=== PATIENT | female | born 1935 | race Caucasian/White ===

== ENCOUNTER 2023-11-14 11:38 | Inpatient (IN) ==
[2023-11-14] MEDS ORDERED: IOPAMIDOL 100 ML BOTTLE IV ONE (11:39)
[2023-11-14] MEDS ORDERED: 0.9 % SODIUM CHLORIDE 1,000 ML IV SCH (12:00)
[2023-11-14 12:21] LABS: POC Calcium, Ionized 1.1 (1.16-1.32); POC Creatinine 0.6 (0.6-1.2)
[2023-11-14] MEDS ORDERED: METOPROLOL TARTRATE 5 MG/5 ML VIAL IV ONE (12:46)
[2023-11-14 13:10] LABS: Basophils # (Auto) 0.05 K/mcL (0.00-0.30); Basophils % (Auto) 0.4 % (0.0-2.0); Eosinophils # (Auto) 0.01 K/mcL (0.00-0.70); Eosinophils % (Auto) 0.1 % (0.0-7.0); Hematocrit 44.2 % (34.1-44.9); Hemoglobin 14.9 g/dL (11.2-15.7); Mean Cell Volume 81.5 fL (80.0-100.0); Mean Corpuscular HGB Conc 33.7 g/dL (31.0-36.0); Mean Platelet Volume 9.5 fL (8.8-12.5); Monocytes # (Auto) 1.32 K/mcL (0.10-0.90); Monocytes % (Auto) 11.5 % (1.0-12.0); Neutrophils % (Auto) 79.5 % (38.0-78.0); Platelet Count 212 K/mcL (140-440); RBC 5.42 M/mcL (3.59-5.38); Red Cell Distribution Width 13.6 % (11.5-14.5); WBC 11.5 K/mcL (4.5-11.0)
[2023-11-14] MEDS ORDERED: 0.9 % SODIUM CHLORIDE 1,000 ML IV ONE (13:44)
[2023-11-14 13:45] LABS: ALT/SGPT 17 U/L (<40); AST/SGOT 28 U/L (<32); Albumin/Globulin Ratio 1.5 (1.0-2.3); Alkaline Phosphatase 105 U/L (39-117); Bilirubin,Total 0.9 mg/dL (0.1-1.0); Blood Urea Nitrogen 12 mg/dL (8-23); Calcium 10.2 mg/dL (8.6-10.4); Carbon Dioxide 23 mmol/L (22-30); Chloride 87 mmol/L (96-108); Globulin 3.4 gm/dL (2.2-3.7); Glomerular Filtration Rate 77; Glucose 112 mg/dL (70-105)
[2023-11-14] MEDS ORDERED: DILTIAZEM 25 MG/5 ML VIAL IV ONE ×2 (14:31→15:44)
[2023-11-14] MEDS ORDERED: AZITHROMYCIN 500 MG in DEXTROSE 5% IN WATER 250 ML IV ONE (14:53)
[2023-11-14] MEDS ORDERED: cefTRIAXone 1 GM VIAL IV ONE (14:53)
[2023-11-14] MEDS ORDERED: METOPROLOL TARTRATE 50 MG TABLET PO ONE (14:54)
[2023-11-14 15:03] LABS: Appearance,Urine HAZY (Clear); Bilirubin,Urine Negative (Negative); Color,Urine YELLOW; Culture Indicated,Urine No; Glucose,Urine (UA) Negative (Negative); Ketones,Urine Negative (Negative); Leukocyte Esterase,Urine Negative /uL (Negative); Mucus,Urine FEW /hpf; Nitrate,Urine Negative (Negative); Protein,Urine 100 mg/dL (Negative); Specific Gravity,Urine 1.019 (1.000-1.035); Urine Blood 0.03 mg/dL (Negative); Urine RBC 2 /hpf (0-3); Urine Squamous Epithelial Cell 0 /hpf (0-4); Urine WBC 2 /hpf (0-4); Urobilinogen,Urine Negative
[2023-11-14 15:08] LABS: Amphetamine Screen,Urine None detected; Barbiturate Screen,Urine None detected; Benzodiazepines Screen,Urine None detected; Cannabinoid Screen,Urine None detected; Cocaine Screen,Urine None detected; Opiate Screen,Urine None detected; Oxycodone, Urine Screen None detected; Phencyclidine Screen,Urine None detected
[2023-11-14] MEDS ORDERED: ONDANSETRON 4 MG/2 ML VIAL IV PRN (16:02)
[2023-11-14] MEDS ORDERED: MAGNESIUM HYDROXIDE 30 ML ORAL.SUSP PO PRN (16:02)
[2023-11-14] MEDS ORDERED: SENNOSIDES 1 TABLET PO PRN (16:02)
[2023-11-14] MEDS ORDERED: IPRATROPIUM/ALBUTEROL 3 ML AMPUL.NEB NEB PRN (16:02)
[2023-11-14] MEDS ORDERED: AZITHROMYCIN 500 MG in DEXTROSE 5% IN WATER 250 ML IV SCH (16:15)
[2023-11-14] MEDS ORDERED: cefTRIAXone 1 GM VIAL IV SCH (16:15)
[2023-11-14] MEDS ORDERED: MAGNESIUM SULFATE 1 GM/100 ML BAG IV SCH (16:33)
[2023-11-14] MEDS ORDERED: RIVAROXABAN 20 MG TABLET PO SCH (17:30)
[2023-11-14 17:43] LABS: Thyroid Stimulating Hormone 1.38 uIU/mL (0.27-5.01)
[2023-11-14] MEDS: LACTATED RINGERS 1,000 ML IV SCH (17:54)
[2023-11-14] MEDS ORDERED: POTASSIUM CHLORIDE 20 MEQ/10 ML VIAL IV ONE ×3 (18:47→23:10)
[2023-11-14] MEDS: POTASSIUM CHLORIDE 20 MEQ in DEXTROSE 5% IN WATER 250 ML IV SCH ×3 (19:01→23:33)
[2023-11-14] MEDS: QUEtiapine 25 MG TABLET PO SCH (19:10)
[2023-11-14] MEDS ORDERED: MAGNESIUM SULFATE 4 GM/100 ML BAG IV SCH (19:35)
[2023-11-14] MEDS ORDERED: MAGNESIUM SULFATE 4 GM/100 ML BAG IV ONE (19:49)
[2023-11-14] MEDS: 0.9 % SODIUM CHLORIDE 10 ML SYRINGE IV SCH (21:21)
[2023-11-15] MEDS: DILTIAZEM 25 MG/5 ML VIAL IV PRN ×4 (00:14→17:27)
[2023-11-15] MEDS: ACETAMINOPHEN 650 MG SUPP.RECT PR PRN ×2 (00:24→10:02)
[2023-11-15] MEDS: QUEtiapine 25 MG TABLET PO PRN ×3 (03:11→15:56)
[2023-11-15] MEDS: 0.9 % SODIUM CHLORIDE 10 ML SYRINGE IV SCH ×3 (04:49→20:35)
[2023-11-15 06:19] LABS: Basophils # (Auto) 0.03 K/mcL (0.00-0.30); Basophils % (Auto) 0.2 % (0.0-2.0); Eosinophils # (Auto) 0.03 K/mcL (0.00-0.70); Eosinophils % (Auto) 0.2 % (0.0-7.0); Hematocrit 35.8 % (34.1-44.9); Hemoglobin 12.4 g/dL (11.2-15.7); Lymphocytes # (Auto) 0.83 K/mcL (1.50-4.80); Lymphocytes % (Auto) 6.5 % (15.5-49.0); Mean Cell Volume 80.4 fL (80.0-100.0); Mean Corpuscular HGB Conc 34.6 g/dL (31.0-36.0); Monocytes # (Auto) 1.86 K/mcL (0.10-0.90); Monocytes % (Auto) 14.6 % (1.0-12.0); Neutrophils % (Auto) 77.6 % (38.0-78.0); Platelet Count 164 K/mcL (140-440); RBC 4.45 M/mcL (3.59-5.38); Red Cell Distribution Width 13.3 % (11.5-14.5); WBC 12.8 K/mcL (4.5-11.0)
[2023-11-15 06:54] LABS: Blood Urea Nitrogen 8 mg/dL (8-23); Calcium 9.1 mg/dL (8.6-10.4); Carbon Dioxide 26 mmol/L (22-30); Chloride 87 mmol/L (96-108); Glomerular Filtration Rate 81; Glucose 101 mg/dL (70-105)
[2023-11-15] MEDS: cefTRIAXone 1 GM VIAL IV SCH (08:39)
[2023-11-15] MEDS ORDERED: METOPROLOL SUCCINATE 50 MG TAB.XL.24H PO SCH (09:00)
[2023-11-15] MEDS: AZITHROMYCIN 500 MG in DEXTROSE 5% IN WATER 250 ML IV SCH (09:02)
[2023-11-15] MEDS: QUEtiapine 25 MG TABLET PO SCH ×2 (09:23→23:17)
[2023-11-15] MEDS: LACTATED RINGERS 1,000 ML IV SCH ×2 (11:58→12:14)
[2023-11-15] MEDS: POTASSIUM CHLORIDE 40 MEQ in DEXTROSE 5% IN WATER 500 ML IV SCH ×2 (11:59→16:58)
[2023-11-15] MEDS: METOPROLOL TARTRATE 50 MG TABLET PO SCH ×2 (12:20→20:35)
[2023-11-15] MEDS: RIVAROXABAN 20 MG TABLET PO SCH (18:12)
[2023-11-16] MEDS: ACETAMINOPHEN 650 MG SUPP.RECT PR PRN (01:19)
[2023-11-16] MEDS: LACTATED RINGERS 1,000 ML IV SCH ×3 (05:24→23:58)
[2023-11-16] MEDS: 0.9 % SODIUM CHLORIDE 10 ML SYRINGE IV SCH ×3 (05:48→20:41)
[2023-11-16 06:31] LABS: Basophils # (Auto) 0.03 K/mcL (0.00-0.30); Basophils % (Auto) 0.3 % (0.0-2.0); Eosinophils # (Auto) 0.11 K/mcL (0.00-0.70); Eosinophils % (Auto) 1.1 % (0.0-7.0); Hematocrit 35.4 % (34.1-44.9); Hemoglobin 12.4 g/dL (11.2-15.7); Lymphocytes # (Auto) 1.42 K/mcL (1.50-4.80); Lymphocytes % (Auto) 13.7 % (15.5-49.0); Mean Cell Volume 81.8 fL (80.0-100.0); Mean Platelet Volume 9.7 fL (8.8-12.5); Monocytes # (Auto) 1.54 K/mcL (0.10-0.90); Monocytes % (Auto) 14.8 % (1.0-12.0); Neutrophils % (Auto) 69.1 % (38.0-78.0); Platelet Count 175 K/mcL (140-440); RBC 4.33 M/mcL (3.59-5.38); Red Cell Distribution Width 13.5 % (11.5-14.5); WBC 10.4 K/mcL (4.5-11.0)
[2023-11-16 07:25] LABS: Thyroid Stimulating Hormone 2.52 uIU/mL (0.27-5.01)
[2023-11-16 07:36] LABS: Blood Urea Nitrogen 7 mg/dL (8-23); Calcium 9.4 mg/dL (8.6-10.4); Carbon Dioxide 24 mmol/L (22-30); Chloride 95 mmol/L (96-108); Glomerular Filtration Rate 86; Glucose 89 mg/dL (70-105)
[2023-11-16] MEDS ORDERED: LACTATED RINGERS 1,000 ML IV SCH (09:30)
[2023-11-16] MEDS: ACETAMINOPHEN 325 MG TABLET PO PRN ×3 (09:36→21:00)
[2023-11-16] MEDS: METOPROLOL TARTRATE 50 MG TABLET PO SCH (09:40)
[2023-11-16] MEDS: cefTRIAXone 1 GM VIAL IV SCH (09:41)
[2023-11-16] MEDS: POTASSIUM CHLORIDE 20 MEQ TABLET PO SCH (09:41)
[2023-11-16] MEDS: QUEtiapine 25 MG TABLET PO SCH ×2 (09:45→09:56)
[2023-11-16] MEDS: AZITHROMYCIN 500 MG in DEXTROSE 5% IN WATER 250 ML IV SCH (10:39)
[2023-11-16] MEDS: METOPROLOL SUCCINATE 50 MG TAB.XL.24H PO SCH (17:08)
[2023-11-16] MEDS: RIVAROXABAN 20 MG TABLET PO SCH (17:09)
[2023-11-16] MEDS: DILTIAZEM 25 MG/5 ML VIAL IV PRN (17:12)
[2023-11-17] MEDS: ACETAMINOPHEN 325 MG TABLET PO PRN ×3 (04:39→21:28)
[2023-11-17] MEDS: 0.9 % SODIUM CHLORIDE 10 ML SYRINGE IV SCH ×4 (04:39→21:22)
[2023-11-17 05:57] LABS: Basophils # (Auto) 0.08 K/mcL (0.00-0.30); Eosinophils # (Auto) 0.12 K/mcL (0.00-0.70); Eosinophils % (Auto) 1.5 % (0.0-7.0); Hematocrit 36.5 % (34.1-44.9); Hemoglobin 12.4 g/dL (11.2-15.7); Lymphocytes # (Auto) 1.18 K/mcL (1.50-4.80); Lymphocytes % (Auto) 14.4 % (15.5-49.0); Mean Cell Volume 83.7 fL (80.0-100.0); Mean Platelet Volume 9.4 fL (8.8-12.5); Monocytes # (Auto) 1.44 K/mcL (0.10-0.90); Monocytes % (Auto) 17.6 % (1.0-12.0); Neutrophils % (Auto) 63.5 % (38.0-78.0); Platelet Count 177 K/mcL (140-440); RBC 4.36 M/mcL (3.59-5.38); Red Cell Distribution Width 13.4 % (11.5-14.5); WBC 8.2 K/mcL (4.5-11.0)
[2023-11-17 07:19] LABS: Blood Urea Nitrogen 15 mg/dL (8-23); Calcium 9.2 mg/dL (8.6-10.4); Carbon Dioxide 22 mmol/L (22-30); Chloride 93 mmol/L (96-108); Glomerular Filtration Rate 77; Glucose 86 mg/dL (70-105)
[2023-11-17] MEDS: cefTRIAXone 1 GM VIAL IV SCH (08:24)
[2023-11-17] MEDS: METOPROLOL SUCCINATE 50 MG TAB.XL.24H PO SCH (08:24)
[2023-11-17] MEDS: POTASSIUM CHLORIDE 20 MEQ TABLET PO SCH (08:24)
[2023-11-17] MEDS: QUEtiapine 25 MG TABLET PO SCH (08:25)
[2023-11-17] MEDS ORDERED: QUEtiapine 25 MG TABLET PO SCH (09:00)
[2023-11-17] MEDS ORDERED: IOPAMIDOL 100 ML BOTTLE IV ONE (10:24)
[2023-11-17 10:50] LABS: Basophils # (Auto) 0.05 K/mcL (0.00-0.30); Basophils % (Auto) 0.7 % (0.0-2.0); Eosinophils # (Auto) 0.06 K/mcL (0.00-0.70); Eosinophils % (Auto) 0.8 % (0.0-7.0); Hematocrit 34.2 % (34.1-44.9); Hemoglobin 11.5 g/dL (11.2-15.7); Lymphocytes # (Auto) 0.66 K/mcL (1.50-4.80); Lymphocytes % (Auto) 8.7 % (15.5-49.0); Mean Cell Volume 85.1 fL (80.0-100.0); Mean Corpuscular HGB Conc 33.6 g/dL (31.0-36.0); Mean Platelet Volume 9.5 fL (8.8-12.5); Monocytes # (Auto) 1.27 K/mcL (0.10-0.90); Monocytes % (Auto) 16.7 % (1.0-12.0); Neutrophils % (Auto) 71.4 % (38.0-78.0); Platelet Count 172 K/mcL (140-440); RBC 4.02 M/mcL (3.59-5.38); Red Cell Distribution Width 13.6 % (11.5-14.5); WBC 7.6 K/mcL (4.5-11.0)
[2023-11-17 11:40] LABS: Blood Urea Nitrogen 15 mg/dL (8-23); Calcium 8.5 mg/dL (8.6-10.4); Carbon Dioxide 22 mmol/L (22-30); Chloride 93 mmol/L (96-108); Glomerular Filtration Rate 57; Glucose 117 mg/dL (70-105)
[2023-11-17] MEDS: ASPIRIN 81 MG TAB.CHEW CHEWED SCH (12:26)
[2023-11-17] MEDS: ATORVASTATIN 40 MG TABLET PO SCH (12:26)
[2023-11-17] MEDS: MAGNESIUM SULFATE 24.36 MEQ in DEXTROSE 5% IN WATER 50 ML IV SCH (12:26)
[2023-11-17 17:06] LABS: Hemoglobin A1C 5.7 % Hgb (4.0-6.0)
[2023-11-17] MEDS: RIVAROXABAN 20 MG TABLET PO SCH (17:40)
[2023-11-18] MEDS: DILTIAZEM 25 MG/5 ML VIAL IV PRN ×2 (04:24→16:35)
[2023-11-18] MEDS: 0.9 % SODIUM CHLORIDE 10 ML SYRINGE IV SCH ×3 (05:49→20:26)
[2023-11-18] MEDS: ACETAMINOPHEN 325 MG TABLET PO PRN ×2 (07:01→21:22)
[2023-11-18] MEDS: ATORVASTATIN 40 MG TABLET PO SCH (08:29)
[2023-11-18] MEDS: ASPIRIN 81 MG TAB.CHEW CHEWED SCH (08:29)
[2023-11-18] MEDS: MAGNESIUM SULFATE 24.36 MEQ in DEXTROSE 5% IN WATER 50 ML IV SCH (08:29)
[2023-11-18] MEDS: POTASSIUM CHLORIDE 20 MEQ TABLET PO SCH (08:29)
[2023-11-18] MEDS: QUEtiapine 25 MG TABLET PO SCH (08:30)
[2023-11-18] MEDS: METOPROLOL SUCCINATE 50 MG TAB.XL.24H PO SCH (08:30)
[2023-11-18] MEDS: APIXABAN 5 MG TABLET PO SCH ×2 (10:12→20:23)
[2023-11-18] MEDS: cefTRIAXone 1 GM VIAL IV SCH (10:12)
[2023-11-18 13:56] LABS: Blood Urea Nitrogen 13 mg/dL (8-23); Calcium 9.7 mg/dL (8.6-10.4); Carbon Dioxide 23 mmol/L (22-30); Chloride 93 mmol/L (96-108); Glomerular Filtration Rate 77; Glucose 114 mg/dL (70-105)
[2023-11-18] MEDS: QUEtiapine 25 MG TABLET PO PRN (22:35)
[2023-11-19] MEDS: ATORVASTATIN 40 MG TABLET PO SCH (08:52)
[2023-11-19] MEDS: ASPIRIN 81 MG TAB.CHEW CHEWED SCH (08:53)
[2023-11-19] MEDS: APIXABAN 5 MG TABLET PO SCH ×2 (08:53→20:02)
[2023-11-19] MEDS: QUEtiapine 25 MG TABLET PO SCH (08:53)
[2023-11-19] MEDS: METOPROLOL SUCCINATE 50 MG TAB.XL.24H PO SCH (08:53)
[2023-11-19] MEDS: 0.9 % SODIUM CHLORIDE 10 ML SYRINGE IV SCH ×3 (09:17→20:36)
[2023-11-19] MEDS: MAGNESIUM SULFATE 24.36 MEQ in DEXTROSE 5% IN WATER 50 ML IV SCH (09:18)
[2023-11-19] MEDS: DILTIAZEM 120 MG CAP.XL.24H PO SCH (09:20)
[2023-11-19] MEDS: cefTRIAXone 1 GM VIAL IV SCH (09:26)
[2023-11-19] MEDS: ACETAMINOPHEN 325 MG TABLET PO PRN (16:40)
[2023-11-20] MEDS: ACETAMINOPHEN 325 MG TABLET PO PRN ×3 (03:21→22:19)
[2023-11-20] MEDS: 0.9 % SODIUM CHLORIDE 10 ML SYRINGE IV SCH ×3 (05:10→22:21)
[2023-11-20] MEDS: METOPROLOL SUCCINATE 50 MG TAB.XL.24H PO SCH (08:47)
[2023-11-20] MEDS: QUEtiapine 25 MG TABLET PO SCH (08:47)
[2023-11-20] MEDS: APIXABAN 5 MG TABLET PO SCH ×2 (08:47→20:06)
[2023-11-20] MEDS: DILTIAZEM 120 MG CAP.XL.24H PO SCH (08:48)
[2023-11-20] MEDS: ASPIRIN 81 MG TAB.CHEW CHEWED SCH (08:48)
[2023-11-20] MEDS: ATORVASTATIN 40 MG TABLET PO SCH (08:48)
[2023-11-20] MEDS: cefTRIAXone 1 GM VIAL IV SCH (10:35)
[2023-11-20] MEDS: IBUPROFEN 600 MG TABLET PO PRN (22:21)
[2023-11-21] MEDS: 0.9 % SODIUM CHLORIDE 10 ML SYRINGE IV SCH ×3 (06:39→20:44)
[2023-11-21 06:52] LABS: Basophils # (Auto) 0.11 K/mcL (0.00-0.30); Basophils % (Auto) 1.8 % (0.0-2.0); Eosinophils # (Auto) 0.13 K/mcL (0.00-0.70); Eosinophils % (Auto) 2.1 % (0.0-7.0); Hematocrit 37.5 % (34.1-44.9); Hemoglobin 12.7 g/dL (11.2-15.7); Lymphocytes # (Auto) 1.07 K/mcL (1.50-4.80); Lymphocytes % (Auto) 17.5 % (15.5-49.0); Mean Cell Volume 84.8 fL (80.0-100.0); Mean Corpuscular HGB Conc 33.9 g/dL (31.0-36.0); Mean Platelet Volume 9.5 fL (8.8-12.5); Monocytes # (Auto) 1.09 K/mcL (0.10-0.90); Monocytes % (Auto) 17.8 % (1.0-12.0); Platelet Count 202 K/mcL (140-440); RBC 4.42 M/mcL (3.59-5.38); Red Cell Distribution Width 13.4 % (11.5-14.5); WBC 6.1 K/mcL (4.5-11.0)
[2023-11-21 07:25] LABS: ALT/SGPT 17 U/L (<40); AST/SGOT 28 U/L (<32); Albumin 3.8 gm/dL (3.2-5.2); Albumin/Globulin Ratio 1.6 (1.0-2.3); Alkaline Phosphatase 74 U/L (39-117); Bilirubin,Total 0.4 mg/dL (0.1-1.0); Blood Urea Nitrogen 16 mg/dL (8-23); Calcium 9.5 mg/dL (8.6-10.4); Carbon Dioxide 22 mmol/L (22-30); Chloride 97 mmol/L (96-108); Globulin 2.4 gm/dL (2.2-3.7); Glomerular Filtration Rate 77; Glucose 90 mg/dL (70-105)
[2023-11-21] MEDS: DILTIAZEM 120 MG CAP.XL.24H PO SCH (08:09)
[2023-11-21] MEDS: cefTRIAXone 1 GM VIAL IV SCH (08:09)
[2023-11-21] MEDS: APIXABAN 5 MG TABLET PO SCH ×2 (08:09→20:44)
[2023-11-21] MEDS: ASPIRIN 81 MG TAB.CHEW CHEWED SCH (08:09)
[2023-11-21] MEDS: ATORVASTATIN 40 MG TABLET PO SCH (08:09)
[2023-11-21] MEDS: METOPROLOL SUCCINATE 50 MG TAB.XL.24H PO SCH (08:09)
[2023-11-21] MEDS: QUEtiapine 25 MG TABLET PO SCH (08:58)
[2023-11-21] MEDS ORDERED: MAGNESIUM SULFATE 2 GM/50 ML BAG IV SCH (10:49)
[2023-11-21] MEDS ORDERED: QUEtiapine 25 MG TABLET PO SCH (21:00)
[2023-11-21] MEDS: QUEtiapine 25 MG TABLET PO PRN (21:12)
[2023-11-22] MEDS: IBUPROFEN 600 MG TABLET PO PRN ×2 (00:16→15:47)
[2023-11-22] MEDS: ACETAMINOPHEN 325 MG TABLET PO PRN ×3 (00:17→21:13)
[2023-11-22] MEDS: 0.9 % SODIUM CHLORIDE 10 ML SYRINGE IV SCH ×3 (05:37→20:00)
[2023-11-22 06:05] LABS: Basophils # (Auto) 0.08 K/mcL (0.00-0.30); Basophils % (Auto) 1.1 % (0.0-2.0); Eosinophils # (Auto) 0.13 K/mcL (0.00-0.70); Eosinophils % (Auto) 1.8 % (0.0-7.0); Hematocrit 37.4 % (34.1-44.9); Hemoglobin 12.8 g/dL (11.2-15.7); Lymphocytes # (Auto) 1.14 K/mcL (1.50-4.80); Lymphocytes % (Auto) 15.4 % (15.5-49.0); Mean Cell Volume 83.1 fL (80.0-100.0); Mean Corpuscular HGB Conc 34.2 g/dL (31.0-36.0); Mean Platelet Volume 9.2 fL (8.8-12.5); Monocytes # (Auto) 1.39 K/mcL (0.10-0.90); Monocytes % (Auto) 18.8 % (1.0-12.0); Platelet Count 214 K/mcL (140-440); Red Cell Distribution Width 13.3 % (11.5-14.5); WBC 7.4 K/mcL (4.5-11.0)
[2023-11-22 06:22] LABS: ALT/SGPT 26 U/L (<40); AST/SGOT 29 U/L (<32); Albumin 3.9 gm/dL (3.2-5.2); Albumin/Globulin Ratio 1.6 (1.0-2.3); Alkaline Phosphatase 82 U/L (39-117); Bilirubin,Total 0.4 mg/dL (0.1-1.0); Blood Urea Nitrogen 15 mg/dL (8-23); Calcium 9.5 mg/dL (8.6-10.4); Carbon Dioxide 26 mmol/L (22-30); Chloride 98 mmol/L (96-108); Globulin 2.4 gm/dL (2.2-3.7); Glomerular Filtration Rate 77; Glucose 89 mg/dL (70-105)
[2023-11-22] MEDS: POTASSIUM CHLORIDE 20 MEQ TABLET PO SCH (07:38)
[2023-11-22] MEDS: DILTIAZEM 120 MG CAP.XL.24H PO SCH (07:38)
[2023-11-22] MEDS: APIXABAN 5 MG TABLET PO SCH ×2 (07:38→20:00)
[2023-11-22] MEDS: ASPIRIN 81 MG TAB.CHEW CHEWED SCH (07:38)
[2023-11-22] MEDS: ATORVASTATIN 40 MG TABLET PO SCH (07:38)
[2023-11-22] MEDS: MAGNESIUM OXIDE 400 MG TABLET PO SCH (09:25)
[2023-11-22] MEDS: METOPROLOL SUCCINATE 50 MG TAB.XL.24H PO SCH (09:25)
[2023-11-22] MEDS: QUEtiapine 25 MG TABLET PO PRN (20:00)
[2023-11-23] MEDS: IBUPROFEN 600 MG TABLET PO PRN (04:00)
[2023-11-23] MEDS: ACETAMINOPHEN 325 MG TABLET PO PRN (04:00)
[2023-11-23] MEDS: 0.9 % SODIUM CHLORIDE 10 ML SYRINGE IV SCH (05:16)
[2023-11-23 06:14] LABS: Basophils # (Auto) 0.11 K/mcL (0.00-0.30); Basophils % (Auto) 1.7 % (0.0-2.0); Eosinophils # (Auto) 0.11 K/mcL (0.00-0.70); Eosinophils % (Auto) 1.7 % (0.0-7.0); Hematocrit 38.3 % (34.1-44.9); Lymphocytes # (Auto) 1.31 K/mcL (1.50-4.80); Lymphocytes % (Auto) 20.2 % (15.5-49.0); Mean Cell Volume 84.7 fL (80.0-100.0); Mean Corpuscular HGB Conc 33.9 g/dL (31.0-36.0); Mean Platelet Volume 9.6 fL (8.8-12.5); Monocytes # (Auto) 1.13 K/mcL (0.10-0.90); Monocytes % (Auto) 17.4 % (1.0-12.0); Platelet Count 227 K/mcL (140-440); RBC 4.52 M/mcL (3.59-5.38); Red Cell Distribution Width 13.3 % (11.5-14.5); WBC 6.5 K/mcL (4.5-11.0)
[2023-11-23 06:33] LABS: ALT/SGPT 23 U/L (<40); AST/SGOT 28 U/L (<32); Albumin 3.9 gm/dL (3.2-5.2); Albumin/Globulin Ratio 1.6 (1.0-2.3); Alkaline Phosphatase 86 U/L (39-117); Bilirubin,Total 0.6 mg/dL (0.1-1.0); Blood Urea Nitrogen 13 mg/dL (8-23); Calcium 9.6 mg/dL (8.6-10.4); Carbon Dioxide 26 mmol/L (22-30); Chloride 97 mmol/L (96-108); Globulin 2.4 gm/dL (2.2-3.7); Glomerular Filtration Rate 65; Glucose 85 mg/dL (70-105)
[2023-11-23] MEDS: METOPROLOL SUCCINATE 50 MG TAB.XL.24H PO SCH (08:56)
[2023-11-23] MEDS: MAGNESIUM OXIDE 400 MG TABLET PO SCH (08:56)
[2023-11-23] MEDS: ATORVASTATIN 40 MG TABLET PO SCH (08:56)
[2023-11-23] MEDS: ASPIRIN 81 MG TAB.CHEW CHEWED SCH (08:56)
[2023-11-23] MEDS: POTASSIUM CHLORIDE 20 MEQ TABLET PO SCH (08:56)
[2023-11-23] MEDS: APIXABAN 5 MG TABLET PO SCH (08:57)
[2023-11-23 10:52] VITALS: TEMP 98.3; O2SAT 99
[2023-11-23] MEDS ORDERED: DILTIAZEM 120 MG CAP.XL.24H PO SCH (11:00)
== END 2023-11-23 11:43 | DRG 64 ==
LOC: ED 11:38 → ICU 16:59
PROVIDERS: ADMIT Internal Medicine; ATTEND Internal Medicine